=== PATIENT | female | born 1950 | race Caucasian/White ===

== ENCOUNTER 2018-08-09 21:19 | Emergency (ER) | payer MEDICARE ==
[~2018-08-09] VITALS: Ht 162.6 cm; Wt 63.6 kg
[2018-08-09] MEDS ORDERED: AMLODIPINE BESYL5 MG PO (21:35)
[2018-08-09] MEDS ORDERED: LOSARTAN POT50 MG PO (21:35)
[2018-08-09] MEDS ORDERED: SYNTHROID75 MCG PO (21:36)
[2018-08-09 21:53] LABS: HEMATOCRIT 43.1 % (37.0-47.0); IMMATURE GRANULOCYTES 1.3 % (0.0-5.0); MEAN CELL VOLUME 96.9 fL CALC (80.0-100.0); MEAN CORPUSCULAR HGB 31.5 pG CALC (26.0-32.0); MEAN CORPUSCULAR HGB CONC 32.5 g/L CALC (32.0-36.0); NEUT# 4.73 thou/uL (2.00-7.15); RED BLOOD COUNT 4.45 mill/uL (4.20-5.60); RED CELL DISTRI WIDTH 13.2 % (11.5-15.5)
[2018-08-09 22:16] LABS: ACT PARTIAL THROMBO TIME 29.6 SECONDS (20.0-32.5); PROTHROMBIN TIME 10.1 SECONDS (9.0-12.5)
[2018-08-09 22:56] VITALS: BP 147/66
== END 2018-08-09 22:56 | disposition home or self-care (01) ==
LOC: ED 21:19
PROVIDERS: Family Medicine
DX: S90.475A Other superficial bite of left lesser toe(s), initial encounter (principal); I10 Essential (primary) hypertension; E03.9 Hypothyroidism, unspecified; W59.11XA Bitten by nonvenomous snake, initial encounter; Y93.89 Activity, other specified; Y92.89 Other specified places as the place of occurrence of the external cause